=== PATIENT | male | born 1965 | race Caucasian/White ===

== ENCOUNTER 2017-02-20 04:11 | Emergency (ER) | payer BC ==
[~2017-02-20] VITALS: Ht 180.3 cm; Wt 102.9 kg
[2017-02-20] MEDS ORDERED: LIDOCAINE 1%, 20ML SQ ONE (05:00)
[2017-02-20] MEDS ORDERED: LIDOCAINE 1%, 20ML ONE (05:13)
[2017-02-20 05:22] VITALS: BP 142/88
== END 2017-02-20 06:01 | disposition home or self-care (01) ==
LOC: ED 05:16
DX: S01.21XA Laceration without foreign body of nose, initial encounter (principal); X58.XXXA Exposure to other specified factors, initial encounter; Y93.89 Activity, other specified; Y99.8 Other external cause status; Y92.89 Other specified places as the place of occurrence of the external cause
CPT/HCPCS: 12011